=== PATIENT | male | born 1935 | race Caucasian/White ===

== ENCOUNTER → 2017-04-12 | Outpatient (CLI) | payer OTHER ==
[~2017-04-12] MED LIST: ASPI-555 PO; ATOR40TA71 PO; CLOP75TA32 PO; FLUT1AER IH; FURO40TA5 PO; METO-391 PO; UMEC62.5 IH; pota; potassium PO
== END | disposition home or self-care (01) ==
LOC: SHCH 09:12
PROVIDERS: ATTEND Internal Medicine Cardiovascular Disease
DX: R00.1 Bradycardia, unspecified (principal)
CPT/HCPCS: 93306

== ENCOUNTER 2017-06-25 18:43 | Emergency (ER) | payer OTHER ==
[2017-06-25] MEDS ORDERED: ASPIRIN 325 MG TABLET ONE (19:13)
[2017-06-25 19:33] LABS: APPEARANCE,URINE Clear (CLEAR); BILIRUBIN,URINE Negative (NEGATIVE); COLOR,URINE Yellow (YELLOW); GLUCOSE, URINE (UA) Negative (NEGATIVE); KETONES,URINE Negative (NEGATIVE); LEUKOCYTE ESTERASE ,URINE Negative (NEGATIVE); NITRATE,URINE Negative (NEGATIVE); OCCULT BLOOD,URINE Negative (NEGATIVE); PROTEIN,URINE Negative (NEGATIVE); UROBILINOGEN,URINE 0.2 mg/dL (0.2-1.0)
[2017-06-25] MEDS ORDERED: METHYLPREDNISOLONE SOD SUCC 125MG/2ML VIAL ONE (19:33)
[2017-06-25] MEDS ORDERED: CEFTRIAXONE SODIUM 2 GM VIAL ONE (19:34)
[2017-06-25 19:35] LABS: BASOPHILS % (AUTO) 0.9 % (0.0-5.0); EOSINOPHILS % (AUTO) 3.7 % (0.0-8.0); HEMATOCRIT 40.8 % (42-54); LYMPHOCYTES % (AUTO) 11.8 % (21.0-51.0); MEAN CORPUSCULAR HEMOGLOBIN 30.7 pg (27.0-33.0); MEAN CORPUSCULAR HGB CONC 33.6 g/dL (32.0-36.0); MEAN CORPUSCULAR VOLUME 91.3 fL (79-99); MONOCYTES % (AUTO) 10.8 % (3.0-13.0); NEUTROPHILS % (AUTO) 72.8 % (40.0-77.0); NUCLEATED RED BLOOD CELLS 0.1 % (0.0-0.19); PLATELET COUNT (AUTO) 266 K/uL (130-400); RED BLOOD CELL COUNT(AUTO) 4.47 MIL/uL (4.50-6.20); RED CELL DISTRIBUTION WIDTH 14.5 % (11.0-15.5); WHITE BLOOD COUNT (AUTO) 9.5 K/uL (4.8-10.8)
[2017-06-25 19:42] LABS: ALBUMIN 3.2 g/dL (3.5-5.0); BILIRUBIN,TOTAL 0.5 mg/dL (0.2-1.0); CREATINE KINASE MB 0.8 ng/mL (0.5-3.6); TOTAL PROTEIN, SERUM 7.4 g/dL (6.0-8.3)
[2017-06-25 19:49] LABS: B-TYPE NATRIURETIC PEPTIDE 257 pg/mL (0-100)
[2017-06-25] MEDS ORDERED: IPRATROPIUM/ALBUTEROL SULFATE 3 ML SOLUTION IH ONE (19:50)
[2017-06-25 19:55] LABS: INR 0.96 (0.85-1.15); PARTIAL THROMBOPLASTIN TIME 27.8 SEC (26.3-35.5); PROTHROMBIN TIME 9.9 SEC (9.6-11.6)
== END 2017-06-25 22:51 | disposition home or self-care (01) ==
LOC: EDH 18:43
DX: J44.1 Chronic obstructive pulmonary disease with (acute) exacerbation (principal); E78.5 Hyperlipidemia, unspecified; I25.10 Atherosclerotic heart disease of native coronary artery without angina pectoris; Z95.1 Presence of aortocoronary bypass graft; Z95.0 Presence of cardiac pacemaker; Z87.891 Personal history of nicotine dependence; Z88.5 Allergy status to narcotic agent
CPT/HCPCS: 36415; 71045; 71250; 80053; 81003; 82550; 82553; 83874; 83880; 84484; 85025; 85610; 85730; 93005; 94640; 94761; 96374; 96375; 99285; J0696; J2930

== ENCOUNTER 2017-12-12 08:59 | Observation (INO) | payer OTHER ==
[2017-12-10 09:05] VITALS: BP 98/61
[2017-12-10 09:21] LABS: BASOPHILS % (AUTO) 0.7 % (0.0-5.0); EOSINOPHILS % (AUTO) 5.7 % (0.0-8.0); HEMATOCRIT 40.1 % (42-54); LYMPHOCYTES % (AUTO) 13.5 % (21.0-51.0); MEAN CORPUSCULAR HEMOGLOBIN 30.1 pg (27.0-33.0); MEAN CORPUSCULAR VOLUME 91.3 fL (79-99); MONOCYTES % (AUTO) 9.2 % (3.0-13.0); NEUTROPHILS % (AUTO) 70.9 % (40.0-77.0); PLATELET COUNT (AUTO) 221 K/uL (130-400); RED BLOOD CELL COUNT(AUTO) 4.39 MIL/uL (4.50-6.20); RED CELL DISTRIBUTION WIDTH 15.5 % (11.0-15.5); WHITE BLOOD COUNT (AUTO) 7.7 K/uL (4.8-10.8)
[2017-12-10 09:44] LABS: CREATININE 1.1 mg/dL (0.5-1.5); POTASSIUM 3.9 mmol/L (3.5-5.1)
[2017-12-10 09:48] LABS: PARTIAL THROMBOPLASTIN TIME 32.7 SEC (26.3-35.5); PROTHROMBIN TIME 10.5 SEC (9.6-11.6)
[2017-12-10 10:30] VITALS: BP 99/62
[2017-12-12] VITALS (10 sets, daily range): BP systolic 84–113; BP diastolic 57–78
[~2017-12-12] VITALS: Ht 170.2 cm; Wt 87.9 kg
[~2017-12-12 08:59] MED LIST changes: +AEC81 PO; -ASPI-555 PO; +CEFAZOLIN SODIUM 1 GM VIAL IVP SCH; -FLUT1AER IH; +NITR0.4T50 SL; +PHARMACY COMMUNICATION MISC SCH; +POTA-79 PO; -UMEC62.5 IH; -pota; -potassium PO
[2017-12-12] MEDS ORDERED: SODIUM CHLORIDE 0.9% 1000ML 1,000 ML IV ONE (10:44)
[2017-12-12] MEDS ORDERED: MEPERIDINE-PF 25 MG/ML SYG ONE ×2 (12:53→13:31)
[2017-12-12] MEDS ORDERED: LIDOCAINE HCL 1% MDV 50ML VIAL ONE (12:53)
[2017-12-12] MEDS ORDERED: IODIXANOL 320 MG/ML 100 ML VIAL ONE (12:53)
[2017-12-12] MEDS ORDERED: CEFAZOLIN SODIUM 1 GM VIAL ONE (12:53)
[2017-12-12] MEDS ORDERED: BUPIVACAINE/PF 0.25% 50ML VIAL IJ ONE (12:53)
[2017-12-12] MEDS ORDERED: MIDAZOLAM HCL 1 MG/ML 2ML VIAL ONE ×2 (12:53→13:31)
[2017-12-12] MEDS ORDERED: OCTYL 2-CYANOACRYLATE 1 EACH TP ONE (14:50)
[2017-12-12] MEDS ORDERED: NITROGLYCERIN 0.4 MG SL TAB SL PRN (15:15)
[2017-12-12] MEDS ORDERED: ACETAMINOPHEN 325 MG TAB PO PRN (15:15)
[2017-12-12] MEDS ORDERED: ONDANSETRON HCL 4 MG/2 ML VIAL IV PRN (15:15)
[2017-12-12] MEDS ORDERED: FUROSEMIDE 40 MG TABLET PO PRN (15:15)
[2017-12-12] MEDS: CEFAZOLIN SODIUM 1 GM VIAL IVP SCH (20:54)
[2017-12-12] MEDS ORDERED: ASPIRIN 81 MG EC TAB PO SCH (21:00)
[2017-12-12] MEDS ORDERED: ATORVASTATIN CALCIUM 40 MG TABLET PO SCH (21:00)
[2017-12-12] MEDS ORDERED: LOSARTAN 50 MG TABLET PO SCH (21:00)
[2017-12-13 03:43] VITALS: BP 97/60
[2017-12-13] MEDS: CEFAZOLIN SODIUM 1 GM VIAL IVP SCH (05:28)
[2017-12-13 07:00] VITALS: BP 93/61
[2017-12-13] MEDS ORDERED: LOSA25TA16 PO (07:25)
[2017-12-13] MEDS ORDERED: Metoprolol Succinate 50 MG PO SCH (09:00)
[2017-12-13] MEDS ORDERED: POTASSIUM CHLORIDE 20 MEQ ERTAB PO SCH (09:00)
[2017-12-13] MEDS ORDERED: CLOPIDOGREL BISULFATE 75 MG TAB PO SCH (09:00)
[2017-12-13 11:00] VITALS: BP 91/60
== END 2017-12-13 12:40 | disposition home or self-care (01) ==
LOC: DAH 08:59 → 2AH 09:00 → DAH 09:00
PROVIDERS: ADMIT Internal Medicine Cardiovascular Disease; ATTEND Internal Medicine Cardiovascular Disease
DX: I44.2 Atrioventricular block, complete (principal); I49.5 Sick sinus syndrome; I25.10 Atherosclerotic heart disease of native coronary artery without angina pectoris; I50.42 Chronic combined systolic (congestive) and diastolic (congestive) heart failure; I25.5 Ischemic cardiomyopathy; G47.33 Obstructive sleep apnea (adult) (pediatric); J44.9 Chronic obstructive pulmonary disease, unspecified; J96.10 Chronic respiratory failure, unspecified whether with hypoxia or hypercapnia; I45.9 Conduction disorder, unspecified; Z95.1 Presence of aortocoronary bypass graft; Z95.5 Presence of coronary angioplasty implant and graft; Z99.81 Dependence on supplemental oxygen; Z79.01 Long term (current) use of anticoagulants; Z79.899 Other long term (current) drug therapy; Z88.8 Allergy status to other drugs, medicaments and biological substances
CPT/HCPCS: 33225; 33229; 36415; 71046; 80048; 85025; 85610; 85730; 93005 ×2; 96374; 96376; A4218 ×2; A4606; C1769 ×2; C1894 ×2; C1900; C2621; G0378 ×28; J0690 ×3; J2175 ×2; J2250 ×2; J3490 ×2; J7030; Q9967; 99156; 99157

== ENCOUNTER 2018-08-29 05:30 | Day surgery (SDC) | payer OTHER ==
[~2018-08-29] VITALS: Ht 172.7 cm; Wt 88.0 kg
[2018-08-29] VITALS (9 sets, daily range): BP systolic 96–114; BP diastolic 46–72
[~2018-08-29 05:30] MED LIST changes: -CEFAZOLIN SODIUM 1 GM VIAL IVP SCH; +LOSA25TA41 PO; -PHARMACY COMMUNICATION MISC SCH
[2018-08-29] MEDS ORDERED: SODIUM CHLORIDE 0.9% 1000ML 1,000 ML IV ONE ×2 (05:50→06:09)
[2018-08-29] MEDS ORDERED: PROPOFOL 10 MG/ML 20ML VIAL IV ONE (06:30)
[2018-08-29] MEDS ORDERED: PHENYLEPHRINE HCL 10 MG/ML 1ML VIAL IV ONE (06:31)
[2018-08-29] MEDS ORDERED: LIDOCAINE HCL-MPF 2% 5ML VIAL ONE (06:31)
== END 2018-08-29 07:55 | disposition home or self-care (01) ==
LOC: DAH 05:30 → ENDO 05:30
PROVIDERS: ATTEND Internal Medicine
DX: K29.50 Unspecified chronic gastritis without bleeding (principal); K64.4 Residual hemorrhoidal skin tags; K64.2 Third degree hemorrhoids; K57.30 Diverticulosis of large intestine without perforation or abscess without bleeding; E78.5 Hyperlipidemia, unspecified; I11.0 Hypertensive heart disease with heart failure; I50.9 Heart failure, unspecified; I21.3 ST elevation (STEMI) myocardial infarction of unspecified site; Z68.33 Body mass index [BMI] 33.0-33.9, adult
CPT/HCPCS: 43239; 43249; 45378; 88305; 93005; A4606; J2370; J2704; J3490; J7030 ×2; 43248; 45380

== ENCOUNTER → 2018-11-26 | Outpatient (CLI) | payer OTHER ==
--- NOTE | 2018-11-26 10:00 | NUR ---
MBSS COMPLETED. -S/S OF ASPIRATION. RECOMMEND REGULAR TEXTURE, THIN LIQUIDS; PILLS WHOLE WITH LIQUIDS. Addendum: 11/27/18 at 0858 by LAURA TURCIOS, [facility] Amended: Links added.
== END | disposition home or self-care (01) ==
LOC: RAH 09:53
PROVIDERS: ATTEND Internal Medicine
DX: R13.10 Dysphagia, unspecified (principal); R63.3 Feeding difficulties
CPT/HCPCS: 74230; 92611

== ENCOUNTER → 2019-04-22 | Outpatient (CLI) | payer OTHER | END | disposition home or self-care (01) | LOC: SHCH 14:35 | PROVIDERS: ATTEND Internal Medicine Cardiovascular Disease | DX: I05.8 Other rheumatic mitral valve diseases (principal); R01.1 Cardiac murmur, unspecified | CPT/HCPCS: 93306 ==

== ENCOUNTER → 2019-04-24 | Outpatient (CLI) | payer OTHER | END | disposition home or self-care (01) | LOC: SHCH 14:59 | PROVIDERS: ATTEND Internal Medicine Cardiovascular Disease | DX: I65.23 Occlusion and stenosis of bilateral carotid arteries (principal) | CPT/HCPCS: 93880 ==